=== PATIENT | male | born 1980 | race Caucasian/White ===

== ENCOUNTER 2020-11-15 17:16 | Emergency (ER) | payer BC ==
[2020-11-15] MEDS ORDERED: Ketorolac 60 MG/2 ML SDV IM ONE (18:26)
[2020-11-15] MEDS ORDERED: Ondansetron 4 MG Tab.DIS PO ONE (18:26)
[2020-11-15 19:11] LABS: CORONAVIRUS COVID-19 NAA POSITIVE (NEGATIVE)
[2020-11-15] MEDS ORDERED: Famotidine 20 MG/2 ML SDV IVPUSH PRN (19:19)
[2020-11-15] MEDS ORDERED: methylPREDNISolone Sodium Succinate 125 MG/2 ML SDV IVPUSH PRN (19:19)
[2020-11-15] MEDS ORDERED: EPINEPHrine 1 MG/ML SDV IM PRN (19:19)
[2020-11-15] MEDS ORDERED: diphenhydrAMINE 50 MG/ML SDV IVPUSH PRN (19:19)
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
[2020-11-15] MEDS ORDERED: Sodium Chloride 0.9% 10 ML Syringe FLUSH SCH (19:30)
[2020-11-15] MEDS ORDERED: Dexamethasone 4 MG Tab PO ONE (19:49)
--- NOTE | 2020-11-15 19:49 | CR ---
Chest: Portable view of the chest was obtained. Comparison: No prior chest imaging is available. Heart size and mediastinum are normal. Three old right upper rib fractures are noted. Lungs are clear with no acute parenchymal change. Impression: 1. Old right upper rib fractures. 2. Nothing acute is seen on portable chest x-ray. Diagnostic code #2
== END 2020-11-15 22:45 | disposition home or self-care (01) ==
LOC: JD.ED 17:16
DX: U07.1 COVID-19 (principal); E66.9 Obesity, unspecified; Z88.5 Allergy status to narcotic agent; Z68.37 Body mass index [BMI] 37.0-37.9, adult
CPT/HCPCS: 0240U; 71045; 87651; 96372; 99283; A9270; J1885; J8540; M0247; Q0247